=== PATIENT | male | born 1975 | race Caucasian/White ===

== ENCOUNTER 2016-11-05 22:54 | Emergency (ER) | payer OTHER ==
--- NOTE | 2016-11-05 23:33 | ED PSYCHIATRIC COMPLAINT ---
History of Present Illness General Chief Complaint: ETOH/Drug Related Complaint Stated Complaint: ETOH Source: patient, old records, EMS Exam Limitations: no limitations Vital Signs & Intake/Output Vital Signs & Intake/Output Vital Signs Date Time Temp Pulse Resp B/P Pulse O2 O2 Flow FiO2 Ox Delivery Rate 11/06 0558 97.2 78 22 124/64 97 Room Air 11/06 0343 98.0 80 18 120/70 98 Room Air 11/05 2316 98.0 81 18 124/80 98 Room Air ED Intake and Output 11/06 0000 11/05 1200 Intake Total Output Total 1000 Balance -1000 Output, Urine 1000 Patient 150 lb Weight Allergies Coded Allergies: NO KNOWN ALLERGIES (11/13/15) Reconcile Medications No Known Home Medications Triage Note: PER EMS AT [facility] PUMPING GAS AND WAS NOTICABLY ETOH HAD DIFFICULTY STANDING WITH ETOH TYPE ODOR TO BREATHE. MOSTLY PRYDEINIG SPEAKING SLURRED SPEECH AND UNSTEADY GAIT Triage Nurses Notes Reviewed? yes Onset: Just prior to arrival Duration: constant, continues in ED Timing: recent history Severity: severe Associated Symptoms: impaired concentration HPI: Patient observed with erratic behavior at gas station admitting to alcohol use. He denies fever chills nausea vomiting diarrhea abdominal pain chest pain shortness breath headache dysuria rash bleeding. Past History Travel History Traveled to [place] past 21 day No Medical History Any Pertinent Medical History? none Neurological: UNOBTAINABLE EENT: UNOBTAINABLE Cardiovascular: UNOBTAINABLE Respiratory: UNOBTAINABLE Gastrointestinal: UNOBTAINABLE Hepatic: UNOBTAINABLE Renal: UNOBTAINABLE Musculoskeletal: UNOBTAINABLE Psychiatric: UNOBTAINABLE Endocrine: UNOBTAINABLE Blood Disorders: UNOBTAINABLE Cancer(s): UNOBTAINABLE SECRETARY OF STATE/Reproductive: UNOBTAINABLE Surgical History Surgical History: non-contributory Psychosocial History What is your primary language Monegasque Tobacco Use: Current Daily Use Daily Tobacco Use Amount/Type: =< 4 Cigarettes daily Family History Hx Contributory? No Review of Systems Review of Systems Constitutional: Reports: no symptoms. EENTM: Reports: no symptoms. Respiratory: Reports: no symptoms. Cardiovascular: Reports: no symptoms. GI: Reports: no symptoms. Genitourinary: Reports: no symptoms. Musculoskeletal: Reports: no symptoms. Skin: Reports: no symptoms. Neurological/Psychological: Reports: see HPI, cognitive dysfunction. Hematologic/Endocrine: Reports: no symptoms. Immunologic/Allergic: Reports: no symptoms. All Other Systems: Reviewed and Negative Physical Exam Physical Exam General Appearance: well developed/nourished, alert, anxious, comfortable Head: atraumatic, normal appearance Eyes: Bilateral: PERRL, EOMI, other (nystagmus). 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 patient not suicidal Progress Differential Diagnosis: drug intoxication, drug overdose, drug withdrawal, electrolyte abnormality, hypoglycemia Plan of Care: Orders Procedure Date/time Status Patient Safety Monitor 11/06 0330 Active Patient Safety Monitor 11/05 2333 Active ETHANOL 11/05 2321 Complete URINE DRUG SCREEN FOR ER ONLY 11/05 2304 Complete Laboratory Tests 11/05/16 2320: Serum Alcohol 294.0 11/05/16 2305: Urine Opiates Screen < 100.00, Methadone Screen < 40, Barbiturate Screen < 60, Ur Phencyclidine Scrn < 6.00, Amphetamines Screen < 100, U Benzodiazepines Scrn < 85, Urine Cocaine Screen < 50, Urine Cannabis Screen < 5.00 Departure Departure Disposition: HOME OR SELF CARE Condition: Stable Clinical Impression Primary Impression: Alcohol intoxication delirium Referrals: DIEGO MOORE,TIMOTHY Iglesias (PCP/Family) Departure Forms: Customer Survey General Discharge Information Prescriptions: Current Visit Scripts No Known Home Medications
[2016-11-06 05:58] VITALS: BP 124/64
== END 2016-11-06 05:48 ==
LOC: ERH 22:54
DX: F10.121 Alcohol abuse with intoxication delirium (principal)
CPT/HCPCS: 80307; G0480

== ENCOUNTER 2018-01-10 17:52 | Emergency (ER) | payer OTHER ==
[~2018-01-10] VITALS: Ht 170.2 cm; Wt 74.8 kg
[~2018-01-10 17:52] MED LIST: FOLIC ACID1 M1 PO; ONE DAILY MULT1 EAC2 PO; VITAMIN B-1100 MG PO
--- NOTE | 2018-01-10 19:54 | ED GENERAL ADULT ---
History of Present Illness General Chief Complaint: General Adult Stated Complaint: PT USING DIETAR SUP TO CONTROL "NOT FEELING WELL"? Source: patient, old records, friend Exam Limitations: language barrier Vital Signs & Intake/Output Vital Signs & Intake/Output Vital Signs Date Time Temp Pulse Resp B/P B/P Pulse O2 O2 Flow FiO2 Mean Ox Delivery Rate 01/10 2038 98.2 81 18 151/90 01/10 2034 97 Room Air 01/10 2031 98.2 81 18 151/90 01/10 2029 81 18 151/90 98 Room Air 01/10 2001 93 20 167/79 98 Room Air 01/10 1759 98.2 104 18 172/87 98 Room Air Allergies Coded Allergies: NO KNOWN ALLERGIES (11/13/15) Reconcile Medications No Known Home Medications Triage Note: PT FROM HOME C/O "TOO MUCH POTASSIUM IN MY SYSTEM". PT IS MAINLY ROMANIAN SPEAKING, PT STATES HE WAS SEEN AT A CLINIC IN [place] AND TOLD HER BP WAS ELEVATED THE PAST 2 DAYS. PT THEN BEGAN TO TAKE A MEDICATION FROM [employer] CALLED "ASPARAGINAIAN EXTRA" PT THEN BEGAN TO FEEL DIZZY, +OROZCO AND STATED HE HAD TOO MUCH POTASSIUM IN HIS SYSTEM. PT IS A&0X3 IN TRIAGE ON CELL PHONE WITH NO DISTRESS NOTED. PTS BP IN TRIAGE 172/87. Triage Nurses Notes Reviewed? yes Onset: Just prior to arrival Duration: better, gone now Timing: recent history Injury Environment: home Severity: mild No Modifying Factors: none HPI: 5 days prior to admission patient had his last alcoholic beverage. Since this time he has not felt well with tremors mild confusion. He took asparaginian a [place] remedy for high blood pressure containing 300 mg of potassium per tablet. He reports taking 2 tablets yesterday and 3 tablets today. He denies fever chills nausea vomiting diarrhea abdominal pain chest pain shortness of breath headache dysuria rash bleeding. Past History Travel History Traveled to [place] past 21 day No Medical History Any Pertinent Medical History? see below for history Neurological: NONE EENT: NONE Cardiovascular: hypertension Respiratory: NONE Gastrointestinal: NONE Hepatic: NONE Renal: NONE Musculoskeletal: NONE Psychiatric: alcohol dependence Endocrine: NONE Other Medical Hx: ALCOHOL DEPENDENCY History of MRSA: No History of VRE: No History of CDIFF: No Surgical History Surgical History: non-contributory Psychosocial History Who do you live with Other (see notes) What is your primary language Andorran Tobacco Use: Current Daily Use Daily Tobacco Use Amount/Type: => 5 Cigarettes daily Family History Hx Contributory? No Review of Systems Review of Systems Constitutional: Reports: see HPI, malaise. EENTM: Reports: no symptoms. Respiratory: Reports: no symptoms. Cardiovascular: Reports: no symptoms. GI: Reports: no symptoms. Genitourinary: Reports: no symptoms. Musculoskeletal: Reports: no symptoms. Skin: Reports: no symptoms. Neurological/Psychological: Reports: see HPI, tremors. Hematologic/Endocrine: Reports: no symptoms. Immunologic/Allergic: Reports: no symptoms. All Other Systems: Reviewed and Negative Physical Exam Physical Exam General Appearance: well developed/nourished, alert, awake, anxious, mild distress, thin Head: atraumatic, normal appearance Eyes: Bilateral: normal appearance, PERRL, EOMI. Ears, Nose, Throat: normal pharynx, normal ENT inspection, hearing grossly normal Neck: normal inspection, supple, full range of motion, no midline tenderness Respiratory: normal breath sounds, chest non-tender, no respiratory distress, quiet respiration, lungs clear Cardiovascular: regular rate/rhythm, normal peripheral pulses, norml femoral pulses equa Peripheral Pulses: 4+ carotid (R), 4+ carotid (L) Gastrointestinal: normal bowel sounds, soft, non-tender, no organomegaly Back: normal inspection, normal range of motion, no vertebral tenderness Extremities: normal inspection, normal capillary refill, normal range of motion, no edema Neurologic/Psych: no motor/sensory deficits, awake, alert, oriented x 3, normal gait, normal mood/affect, surgical coder II-XII nml as tested Reflexes: 2+: bicep (R), bicep (L). Skin: intact, normal color, warm/dry Lymphatic: no anterior cervical refugio Core Measures ACS in differential dx? No CVA/TIA Diagnosis: No Sepsis Present: No Sepsis Focused Exam Completed? No Progress Differential Diagnoses I considered the following diagnoses in my evaluation of the patient: Alcohol withdrawal hyperkalemia electrolyte abnormallity Plan of Care: Orders Procedure Date/time Status MAGNESIUM 01/10 1946 Complete ETHANOL 01/10 1946 Complete COMPREHENSIVE METABOLIC PANEL 01/10 1946 Complete CBC WITHOUT DIFFERENTIAL 01/10 1946 Complete EKG 01/10 1946 Active Laboratory Tests 01/10/182024: Anion Gap 7, Estimated GFR > 60, BUN/Creatinine Ratio 13.3, Glucose 93, Calcium 8.8, Magnesium 1.9, Total Bilirubin 0.4, AST 40, ALT 63, Alkaline Phosphatase 115, Total Protein 6.1 L, Albumin 3.4 L, Globulin 2.7, Albumin/Globulin Ratio 1.3, CBC w Diff NO MAN DIFF REQ, RBC 3.60 L, MCV 95.2 H, MCH 33.2 H, MCHC 34.9, RDW 13.5, MPV 7.1 L, Gran % 50.2, Lymphocytes % 36.6, Monocytes % 9.0, Eosinophils % 3.7, Basophils % 0.5, Absolute Granulocytes 4.2, Absolute Lymphocytes 3.0, Absolute Monocytes 0.7 H, Absolute Eosinophils 0.3, Absolute Basophils 0, Serum Alcohol < 10.0 Initial ED EKG: normal intervals, normal p-waves, normal sinus rhythm, LVH, no ST T wave changes Rhythm Strip: normal sinus rhythm Comments: Feels better. Patient requests medications to help with anxiety, depression, stress. Has follow up with Dr. Marshall tomorrow at 245PM. Departure Departure Time of Disposition: 2101 Disposition: HOME OR SELF CARE Condition: Stable Clinical Impression Primary Impression: Alcohol withdrawal Secondary Impressions: Anxiety associated with depression, Hypertension Referrals: Joanna MOORE,Leo Iglesias (PCP/Family) Departure Forms: Customer Survey General Discharge Information Prescriptions: Current Visit Scripts No Known Home Medications Critical Care Note Critical Care Note Critical Care Time: 30-74 min (35)
[2018-01-10 20:35] LABS: ABSOLUTE BASOPHIL COUNT 0 /CUMM (0.0-0.2); ABSOLUTE EOSINOPHIL COUNT 0.3 /CUMM (0.0-0.7); ABSOLUTE GRANULOCYTE CT 4.2 /CUMM (1.4-6.5); ABSOLUTE MONOCYTE COUNT 0.7 /CUMM (0.10-0.60); BASOPHIL % 0.5 % (0.0-2.0); EOSINOPHIL % 3.7 % (0-5); GRANULOCYTE % 50.2 % (42.2-75.2); HEMATOCRIT 34.3 % (42-52); MEAN CORPUSCULAR HGB 33.2 PG (27.0-31.0); MEAN CORPUSCULAR HGB CONC 34.9 G/DL (33.0-37.0); MEAN CORPUSCULAR VOLUME 95.2 FL (80.0-94.0); MEAN PLATELET VOLUME 7.1 FL (7.4-10.4); PLATELET COUNT 144 /CUMM (130-400); RBC DISTRIBUTION WIDTH 13.5 % (11.5-14.5); WHITE BLOOD CELL COUNT 8.3 /CUMM (4.8-10.8)
[2018-01-10] MEDS ORDERED: LEXAPRO10 M1 PO (21:05)
[2018-01-10] MEDS ORDERED: METOPROLOL TART25 M1 PO (21:05)
[2018-01-10 21:19] VITALS: BP 160/89
== END 2018-01-10 21:20 ==
LOC: ERH 17:52
PROVIDERS: Emergency Medicine
DX: F10.239 Alcohol dependence with withdrawal, unspecified (principal); F41.9 Anxiety disorder, unspecified; F32.9 Major depressive disorder, single episode, unspecified; I10 Essential (primary) hypertension; F17.210 Nicotine dependence, cigarettes, uncomplicated; R41.0 Disorientation, unspecified
CPT/HCPCS: 93005; 93010; 96374; G0480; J3490

== ENCOUNTER 2018-04-11 21:28 | Emergency (ER) | payer OTHER ==
[~2018-04-11] VITALS: Ht 167.6 cm; Wt 69.9 kg
[~2018-04-11 21:28] MED LIST changes: +LEXAPRO10 M1 PO; +METOPROLOL TART25 M1 PO
--- NOTE | 2018-04-12 02:04 | ED EYE COMPLAINT ---
History of Present Illness General Chief Complaint: Eye Problems Stated Complaint: "SOMETHING IN R EYE" PER PT Source: patient, old records Exam Limitations: no limitations Vital Signs & Intake/Output Vital Signs & Intake/Output Vital Signs Date Time Temp Pulse Resp B/P B/P Pulse O2 O2 Flow FiO2 Mean Ox Delivery Rate 04/12 0236 98.2 77 16 132/85 99 Room Air 04/11 2301 96.9 66 18 151/84 96 Room Air ED Intake and Output 04/12 0000 04/11 1200 Intake Total Output Total Balance Patient 154 lb Weight Weight Estimated Measurement Method Allergies Coded Allergies: NO KNOWN ALLERGIES (11/13/15) Reconcile Medications Escitalopram Oxalate (Lexapro) 10 MG TABLET 1 TAB PO DAILY anxiety / depression Ketorolac Tromethamine (Acular) 0.5 % DROPS 1 GTT OPH 4 TIMES/DAY PRN eye pain Metoprolol Tartrate 25 MG TABLET 1 TAB PO BID htn, anxiety Tobramycin (Tobrex) 0.3 % DROPS 2 GTT OPH 4 TIMES/DAY corneal abrasion Triage Note: RECEIVED 42 YO MALE C/O FORIEGN BODY IN RIGHT EYE. 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 RIGHT EYE REDDENED AND TEARING. Triage Nurses Notes Reviewed? yes Onset: Just prior to arrival Duration: hour(s):, constant, continues in ED Timing: recent history Injury Environment: home Severity: moderate Modifying Factors: Worsens With: other. 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 He complains of foreign body sensation tearing and redness. He denies fever chills nausea vomiting diarrhea abdominal pain chest pain shortness breath headache dysuria rash bleeding change in vision glasses or contact lens use. Past History Travel History Traveled to [place] past 21 day No Medical History Any Pertinent Medical History? see below for history Neurological: NONE EENT: NONE Cardiovascular: hypertension Respiratory: NONE Gastrointestinal: NONE Hepatic: NONE Renal: NONE Musculoskeletal: NONE Psychiatric: alcohol dependence Endocrine: NONE Other Medical Hx: ALCOHOL DEPENDENCY History of MRSA: No History of VRE: No History of CDIFF: No Surgical History Surgical History: non-contributory Psychosocial History Who do you live with Other (see notes) What is your primary language Kyrgyz Tobacco Use: Current Daily Use Daily Tobacco Use Amount/Type: => 5 Cigarettes daily Family History Hx Contributory? No Review of Systems Review of Systems Constitutional: Reports: no symptoms. Eyes: Reports: see HPI, foreign body sensation, photophobia. Ear: Reports: no symptoms. Nose: Reports: no symptoms. Mouth: Reports: no symptoms. Throat: Reports: no symptoms. Respiratory: Reports: no symptoms. Cardiovascular: Reports: no symptoms. GI: Reports: no symptoms. Genitourinary: Reports: no symptoms. Musculoskeletal: Reports: no symptoms. Skin: Reports: no symptoms. Neurological/Psychological: Reports: no symptoms. Hematologic/Endocrine: Reports: no symptoms. Immunologic/Allergic: Reports: no symptoms. All Other Systems: Reviewed and Negative Physical Exam General Appearance: well developed/nourished, mild distress General Inspection: normal inspection Eyelid: normal inspection Conjunctiva/Sclera: normal inspection Cornea: normal inspection EOM: intact Pupil: normal accommodation, normal pupil, PERRL Anterior Chamber: normal inspection General Inspection: periorbital swelling Eyelid: everted for exam, edema Conjunctiva/Sclera: injected Cornea: examined w/fluorescein, abrasion, fluorescein dye uptake EOM: intact Pupil: normal accommodation, normal pupil, PERRL Anterior Chamber: normal inspection Physical Exam Head: atraumatic, normal appearance Ears: Bilateral: canal normal, Tympanic normal. Nose: normal inspection Mouth/Throat: normal mouth inspection Neck: normal inspection, supple Cardiovascular/Respiratory: normal breath sounds, regular rate/rhythm Neurologic/Psych: awake, alert, oriented x 3, normal mood/affect Skin: intact, normal color, warm/dry Progress Differential Diagnosis: corneal abrasion, corneal foreign body Plan of Care: Current Medications Sig/Francia Start time Last Medication Dose Stop Time Status Admin Atropine Sulfate 2 GTT SEE ADMIN CRITERIA 04/12 0215 AC (ATROPINE) Departure Departure Time of Disposition: 226 Disposition: HOME OR SELF CARE Condition: Stable Clinical Impression Primary Impression: Corneal abrasion, right Qualifiers: Encounter type: initial encounter Qualified Code: S05.01XA - Injury of conjunctiva and corneal abrasion without foreign body, right eye, initial encounter Referrals: Joanna MOORE,Leo Iglesias (PCP/Family) Av MOORE,Jack Oconnor Call for ophthalmology follow up if not better in 3 days. Additional Instructions: Tetracaine eye drops 1-2 drops every 6 hours as needed for pain Departure Forms: Customer Survey General Discharge Information Prescriptions: Current Visit Scripts Ketorolac Tromethamine (Acular) 1 GTT OPH 4 TIMES/DAY PRN eye pain #5 ML Tobramycin (Tobrex) 2 GTT OPH 4 TIMES/DAY #5 ML
[2018-04-12] MEDS ORDERED: ACULAR5 ML OPH (02:29)
[2018-04-12] MEDS ORDERED: TOBREX5 ML OPH (02:29)
[2018-04-12 02:36] VITALS: BP 132/85
== END 2018-04-12 02:37 ==
LOC: ERH 21:28
DX: S05.01XA Injury of conjunctiva and corneal abrasion without foreign body, right eye, initial encounter (principal); X58.XXXA Exposure to other specified factors, initial encounter; Y92.009 Unspecified place in unspecified non-institutional (private) residence as the place of occurrence of the external cause; Y93.H3 Activity, building and construction